=== PATIENT | female | born 1950 | race Caucasian/White ===

== ENCOUNTER 2024-11-15 14:43 | Emergency (ER) | payer MEDICARE, MEDICAID, SELFPAY ==
[2024-11-15 14:44] VITALS: PULSE 88; RESP 18; O2SAT 96; BMI 40.7
[2024-11-15 14:59] VITALS: BP 130/82; PULSE 80; RESP 18; TEMP 36.6; O2SAT 98
--- NOTE | 2024-11-15 15:12 | PD.EDRME ---
Rapid Medical Screening Exam E Arrival date/time: 11/15/24 14:43 74-year-old female presents to the emergency department complaints of diarrhea for 7 days. Patient does report she had 1 bout of black stools today prompting her ED visit. I have greeted and performed a focused initial assessment of this patient. Initial appropriate labs ordered at this time. A comprehensive ED assessment and evaluation of the patient and analysis of all test and completion of medical decision making process will be conducted by additional ED provider. Chief Complaint: Nausea/Vomiting/Diarrhea Time Seen by Provider: 11/15/24 14:56 Vital signs: Vital Signs Temperature 97.9 F 11/15/24 14:59 Pulse Rate 80 11/15/24 14:59 Respiratory Rate 18 11/15/24 14:59 Blood Pressure 130/82 11/15/24 14:59 Pulse Oximetry (%) 98 11/15/24 14:59 Oxygen Delivery Method Room Air 11/15/24 14:59
[2024-11-15] MEDS: LOPERAMIDE 2 MG CAPSULE 4 MG PO (15:37)
[2024-11-15 16:16] LABS: Basophils % (Auto) 1 % (0-2.5); Eosinophils # (Auto) 0.2 Thou/mm3 (0.0-0.5); Eosinophils % (Auto) 4 % (0-10); Hematocrit 36.2 % (36.0-46.0); Hemoglobin 11.8 g/dL (12.0-16.0); Immature Granulocytes % (Auto) 0 % (0-0); Immature Granulocytes Auto 0.02 Thou/mm3 (0.00-0.00); Lymphocytes # (Auto) 1.4 Thou/mm3 (1.0-4.8); Lymphocytes % (Auto) 25 % (10-50); Mean Corpuscular HGB Conc 32.6 g/dl (31.0-37.0); Mean Corpuscular Hemoglobin 28.6 pg (25.0-35.0); Mean Corpuscular Volume 88 fL (80-100); Monocytes # (Auto) 0.5 Thou/mm3 (0.0-0.8); Monocytes % (Auto) 10 % (0-12); Neutrophils # (Auto) 3.3 Thou/mm3 (1.8-7.7); Neutrophils % (Auto) 61 % (37-80); Nucleated Red Blood Cell % 0 /100 WBC (0); Platelet Count 224 Thou/mm3 (140-440); RDW Standard Deviation 46.1 fL (36.4-46.3); Red Blood Count 4.13 Miln/mm3 (4.00-5.20); White Blood Count 5.4 Thou/mm3 (3.6-11.0)
[2024-11-15 16:33] LABS: Alanine Aminotransferase 16 U/L (10-49); Albumin, Serum 4.6 gm/dL (3.4-4.8); Albumin/Globulin Ratio 1.7 (1.2-2.2); Alkaline Phosphatase 118 U/L (46-116); Anion Gap 7 (7-16); Aspartate Amino Transferase 25 U/L (0-34); BUN/Creatinine Ratio 13 Ratio (12-20); Bilirubin,Total 0.2 mg/dL (0.3-1.2); Blood Urea Nitrogen 13 mg/dL (9-23); Calcium 9.6 mg/dL (8.3-10.6); Calcium (Corrected) 9.6 mg/dL (8.5-10.1); Carbon Dioxide 22.8 mMol/L (20.0-31.0); Chloride 99 mMol/L (98-107); Estimated Creatinine Clearance 56.1 mL/min (>60); Globulin 2.7 gm/dL (2.3-3.5); Glucose 121 mg/dL (74-106); Osmolality,Calculated 260 (275-295); Potassium 4.8 mMol/L (3.4-5.1); Sodium 129 mMol/L (136-145); Total Protein 7.3 gm/dL (5.7-8.2); eGFR 59 See Note
[2024-11-15 16:46] LABS: Prothrombin Time 10.9 Seconds (9.0-12.2)
[2024-11-15 18:57] VITALS: BP 160/99; PULSE 87; RESP 17; TEMP 36.6; O2SAT 100
[2024-11-15 19:05] VITALS: BP 180/91; PULSE 76; RESP 16; O2SAT 100
--- NOTE | 2024-11-15 19:14 | PD.EDNV ---
Nausea/Vomit./Diarrhea-RME/HPI General Chief complaint: Nausea/Vomiting/Diarrhea Stated complaint: Diarrhea Time Seen by Provider: 11/15/24 14:56 Source: patient Arrival date/time: 11/15/24 14:43 Mode of arrival: ambulatory Limitations: no limitations RME / HPI RME / HPI Narrative: 11/15/24 14:43 74-year-old female presents to the emergency department complaints of diarrhea for 7 days. Patient does report she had 1 bout of black stools today prompting her ED visit. I have greeted and performed a focused initial assessment of this patient. Initial appropriate labs ordered at this time. A comprehensive ED assessment and evaluation of the patient and analysis of all test and completion of medical decision making process will be conducted by additional ED provider. Dr. Liang?s Main ED Evaluation: The patient is a 74-year-old female who presented to the emergency department with a chief complaint of multiple episodes of diarrhea per day for the past 8 days. She describes her stools as black, loose, and tarry in appearance. Despite these symptoms, she denies any abdominal pain, including epigastric discomfort. She has chronic back pain, for which she takes ibuprofen 600 mg TID daily, but reports no new or worsening back pain. Additionally, she denies other systemic symptoms such as body aches, chills, shaking, or fevers. The patient also reports a cough but denies any associated upper respiratory symptoms such as a runny nose, sneezing, sore throat, or headache. During the medical screening exam (MSE), the patient initially stated that she had experienced a single black stool that resembled tar, which prompted her visit to the ED. However, during a subsequent conversation, she clarified that she has been having black diarrhea for 8 days. She denies symptoms of dizziness, lightheadedness, blurry vision, or orthostatic changes. There is also no dyspnea on exertion. The patient reports no personal history of gastrointestinal bleeding and is not taking any anticoagulant medications. Related Data Previous Rx's ?Medication ?Instructions ?Recorded cyclobenzaprine 10 mg tablet 10 mg PO TID #14 tabs 04/30/23 meloxicam 7.5 mg tablet 7.5 mg PO QDAY #14 tabs 04/30/23 loperamide 2 mg-simethicone 125 mg 1 tab PO Q3H PRN loose stool #30 11/15/24 tablet (Anti-Diarrheal tabs (loperamide) - Anti-Gas) Allergies Allergy/AdvReac Type Severity Reaction Status Date / Time No Known Allergies Allergy Verified 11/15/24 14:47 Review of Systems Review of Systems Systems Reviewed: All systems reviewed, normal except as documented Past Medical History Past Medical History CARDIAC: Negative Congestive Heart Failure RESPIRATORY: Negative Chronic Obstructive Pulmonary Disease (COPD) GENITOURINARY: Negative Renal Disease MUSCULOSKELETAL: Positive Musculoskeletal Disorders and Arthritis ENDOCRINE: Negative Diabetes Mellitus Type 1 or Diabetes Mellitus Type 2 Social History SMOKING STATUS: Light (< 1 pack/day) ED Exam Narrative Physical exam: GENERAL APPEARANCE: alert and oriented x 4, well-developed, well-nourished, no acute distress VITALS: All vitals were reviewed and the pulse ox is 100% on room air, which is normal according to my interpretation. HEENT: Normocephalic, atraumatic; pupils equal, round, reactive to light; EOMI; mucous membranes pink, moist; oropharynx clear NECK: Supple LUNGS: CTABL; no wheezes, no rales, no rhonchi HEART: Regular rate, regular rhythm; normal S1, S2; no murmurs ABDOMEN: non distended; normal BS; soft, no tenderness, no guarding, no rebound; no masses, no organomegaly, no hernia. No right lower quadrant or right upper quadrant tenderness to even deep palpation. RECTAL: Patient is guaiac negative from below. BACK: no CVA tenderness EXTREMITIES: atraumatic; no edema NEUROLOGIC: awake; alert and oriented x4; cranial nerves II-XII grossly intact; no focal sensory or motor deficits PSYCHIATRIC: appropriate mood and affect SKIN: warm, dry, normal color; no rashes General Limitations: Present no limitations Course Quality Measures none Orders Category Date Time Status Occult Blood,Stool (Nursing) NOW Care 11/15/24 15:12 Completed CBC Stat Lab 11/15/24 15:39 Completed CMP [Comprehensive Metabolic Panel] Stat Lab 11/15/24 15:39 Completed PT [Prothrombin Time with INR] Stat Lab 11/15/24 15:39 Completed Loperamide [Imodium] Med 11/15/24 15:11 Discontinued 4 mg PO X1 ONE Vital Signs Vital signs: Vital Signs Temperature 97.9 F 11/15/24 14:59 Pulse Rate 80 11/15/24 14:59 Respiratory Rate 18 11/15/24 14:59 Blood Pressure 130/82 11/15/24 14:59 Pulse Oximetry (%) 98 11/15/24 14:59 Oxygen Delivery Method Room Air 11/15/24 14:59 Nausea/Vomiting/Diarrhea MDM Narrative MDM Narrative:: Patient is a 74-year-old female who presented to the emergency department complaining of multiple episodes of diarrhea per day for the last 8 days. Patient denies abdominal pain, has chronic back pain but no new back pain, no bodyaches, no chills or shakes or fevers. She complains of a cough but no runny nose or sneezing. No sore throat or headache. Patient describes the stool as black. Apparently she takes ibuprofen 600 mg 3 times daily for chronic back pain. She denies epigastric or otherwise abdominal pain [place] [facility] [place] mentioned that she had 1 black stool which appeared like tar and that prompted her to come to the emergency department. However when I spoke with her she said she has been having black diarrhea for 8 days. No lightheadedness, dizziness, blurry vision. No dyspnea on exertion. No orthostatic symptoms. No history of GI bleed. She is not on anticoagulants Patient is guaiac negative from below. The remainder of her exam is completely normal including the abdominal exam. No right lower quadrant or right upper quadrant tenderness to even deep palpation. Patient received 1 Imodium here in the emergency department and her diarrhea is resolved. Will discharge the patient with a prescription for same and instructions to follow-up with her primary care doctor. Scribe Attestation: Karli Santiago, am scribing for and in the presence of Dr. Liang. Provider Notation: Although this document has been carefully reviewed, there may still be some phonetic and other typographical errors. These errors are purely grammatical due to imperfections in the software program and should not be construed in any way to compromise the substance of the patient's medical care during this visit. Patient data External records reviewed:: [facility] previous records Clinical information provided by:: patient Social determinants that could affect healthcare access:: none Patient has the following chronic illnesses:: see PMH How is presenting disease/condition affected by chronic disease/condition?: uneffected by Evaluation data The following diagnostics were reviewed and interpreted by me:: lab results Lab and/or radiology exams considered but not ordered:: n/a Interpretation Summary: WBC 5.4 WNL Medications / Prescriptions Medications / Prescriptions considered but not ordered:: n/a Medication administrations:: Medication Administration History Discontinued Medications Loperamide HCl (Loperamide 2 Mg Capsule) 4 mg PO X1 ONE Stop: 11/15/24 15:12 Last Admin: 11/15/24 15:37 Dose: 4 mg Documented By: as above Consultations Consultation(s) initiated? (list below): No Diagnosis Nausea Differential Diagnosis: traveler's diarrhea, gastroenteritis, drug-induced nausea and vomiting and dehydration Most likely diagnosis given after review of the tests above:: Diarrhea Admission Indicated Admission indicated?: not indicated Admission Request Was there a request for admission?: No Disposition Plan Disposition Plan: Discharge Discharge Attestation Discharge Attestation: The patient and all family members were given an opportunity to ask questions and understood the discharge instructions. Discharge instructions specifically effects, indications for sooner follow up or return to the emergency department, and the expected course of current diagnosis. Patient condition: Stable Discharge Plan Plan Patient Disposition: HOME (Self Care) Disposition Comment: Stable for discharge Patient condition on transfer: Stable Prescriptions/Referrals Prescriptions/Med Rec: New loperamide-simethicone [Anti-Diarrheal (kendell)-Anti-Gas] 2-125 mg tablet 1 tab PO Q3H PRN (Reason: loose stool) Qty: 30 0RF Rx Instructions: do not exceed 4 tabs in 24 hrs No Action cyclobenzaprine 10 mg tablet 10 mg PO TID Qty: 14 0RF meloxicam 7.5 mg tablet 7.5 mg PO QDAY Qty: 14 0RF Referrals: [facility] [Outside] - In 1 week Problem List Clinical Impression: Diarrhea Patient/Caregiver Discharge Instructions Discharge Activity: activity as tolerated Education Materials: Treating Diarrhea, Self-Care for Vomiting and Diarrhea, ED Diarrhea, Unknown Cause, ED Vomiting and Diarrhea ... Additional Instructions: Please return to the emergency department for any worsening or any further medical problems. Otherwise he should follow-up with your primary care doctor or in the family [facility] within the next several days. I do not believe that your pooping blood. Sometimes when people have black stool we worry about it being blood. But are special test today showed that this is not blood. Print Language: Montserratian Stand Alone Forms: Brandi Award Info., Patient Portal Info Letter
== END 2024-11-15 19:37 | disposition home or self-care (01) ==
PROVIDERS: Nurse Practitioner Primary Care; Emergency Provider Emergency Medicine
DX: R19.7 Diarrhea, unspecified (principal); F17.210 Nicotine dependence, cigarettes, uncomplicated
CPT/HCPCS: 36415; 80053; 85025; 85610; 87015; 87045; 87046; 87205; 87899; 99283; A9270

== ENCOUNTER 2025-01-12 08:55 | Emergency (ER) | payer MEDICARE, MEDICAID, SELFPAY ==
[2025-01-12 09:02] VITALS: BP 122/67; PULSE 89; RESP 18; TEMP 36.7; O2SAT 97; BMI 42.5
[2025-01-12 09:03] VITALS: PULSE 92; RESP 18; O2SAT 98; BMI 40.7
--- NOTE | 2025-01-12 09:30 | EDNOTE_ITS ---
<Statement entered by Binta Campbell MD - 01/12/25 17:53> As co-signing physician, I was present and available for consult prn. I concur with the plan and care as documented by the midlevel provider. ED General RME/HPI General Chief complaint: General Adult/Misc Complain Stated complaint: ARTHRITIS Time Seen by Provider: 01/12/25 09:35 Source: patient Arrival date/time: 01/12/25 08:55 74-year-old female with a history of arthritis presents to the emergency room with a chief complaint of generalized bodyaches and pain. Patient states she has seen her primary care provider for increased pain but they did not want to give her stronger medication. Mode of arrival: ambulatory Limitations: no limitations Related Data Previous Rx's ?Medication ?Instructions ?Recorded cyclobenzaprine 10 mg tablet 10 mg PO TID #14 tabs meloxicam 7.5 mg tablet 7.5 mg PO QDAY #14 tabs 04/08 01/28 loperamide 2 mg-simethicone 125 mg 1 tab PO Q3H PRN lo ose stool #30 11/15/24 tablet (Anti-Diarrheal tabs (loperamide) - Anti-Gas) Allergies Allergy/AdvReac Type Severity Reaction Status Date / Time No Known Allergies Allergy Verified 11/15/24 14:47 Review of Systems Review of Systems Systems Reviewed: All systems reviewed, normal except as documented Constitutional Constitutional: Reports system reviewed and no additional complaints, except as documented, Denies fatigue, Denies fever(s), Denies headache(s) and Denies weakness Eyes Eyes: Reports system reviewed and no additional complaints, except as documented, Denies blurry vision and Denies change in vision ENT Ears, Nose, Mouth, and Throat: Reports system reviewed and no additional complaints, except as documented, Denies otalgia, Denies headache(s), Denies nasal congestion, Denies throat swelling and Denies vertigo Cardiovascular Cardiovascular: Reports system reviewed and no additional complaints, except as documented, Denies chest pain, Denies dyspnea and Denies dyspnea on exertion Respiratory Respiratory: Reports system reviewed and no additional complaints, except as documented, Denies chest congestion, Denies cough, Denies dyspnea, Denies dyspnea on exertion and Denies wheezing Gastrointestinal Gastrointestinal: Reports system reviewed and no additional complaints, except as documented, Denies abdominal pain, Denies cramping, Denies nausea and Denies vomiting Genitourinary Genitourinary: Reports system reviewed and no additional complaints, except as documented Musculoskeletal Musculoskeletal: Reports system reviewed and no additional complaints, except as documented, Reports arthralgias, Denies back pain, Reports muscle weakness and Reports myalgias Integumentary/Breasts Skin/Breast: Reports system reviewed and no additional complaints, except as documented and Denies wounds Neurologic Neurologic: Reports system reviewed and no additional complaints, except as documented, Denies confusion, Denies headache(s), Denies lack of coordination, Denies vertigo and Denies weakness Psychiatric Psychiatric: Reports system reviewed and no additional complaints, except as documented, Denies anxiety, Denies confusion, Denies depression, Denies paranoia, Denies suicidal ideation and Denies tactile hallucinations Endocrine Endocrine: Reports system reviewed and no additional complaints, except as documented and Denies fatigue Hematologic/Lymphatic Hematologic/Lymphatic: Reports system reviewed and no additional complaints, except as documented and Denies lymphadenopathy Allergic/Immunologic Allergic/Immunologic: Reports system reviewed and no additional complaints, except as documented, Denies throat swelling, Denies urticaria and Denies wheezing Past Medical History Past Medical History CARDIAC: Negative Congestive Heart Failure RESPIRATORY: Negative Chronic Obstructive Pulmonary Disease (COPD) GENITOURINARY: Negative Renal Disease MUSCULOSKELETAL: Positive Musculoskeletal Disorders and Arthritis ENDOCRINE: Negative Diabetes Mellitus Type 1 or Diabetes Mellitus Type 2 Social History SMOKING STATUS: Current some day smoker ED Exam General Limitations: Present no limitations General appearance: Present alert and in no apparent distress Head Head exam: Present atraumatic Eye Eye exam: Present normal appearance, PERRL and EOMI ENT ENT exam: Present normal exam, normal oropharynx and mucous membranes moist Neck Neck exam: Present normal inspection, full ROM and trachea midline Chest Chest inspection: Present normal inspection and symmetric chest wall rise Respiratory Respiratory exam: Present normal lung sounds bilaterally Cardiovascular Cardiovascular exam: Present regular rate, normal rhythm and normal heart sounds Abdominal Exam Abdominal exam: Present soft and normal bowel sounds Extremities Exam Extremities exam: Present normal inspection and full ROM Back Exam Back exam: Present normal inspection and full ROM Neurological Exam Neurological exam: Present alert, oriented X3 and CN II-XII intact Psychiatric Psychiatric exam: Present normal affect and normal mood Skin Skin exam: Present warm, dry, intact and normal color Course Quality Measures none Orders Category Date Time Status Ketorolac Inj [Toradol Inj] Med 01/12/25 09:30 Discontinued 30 mg IM X1 ONE traMADol HCL [Ultram] Med 01/12/25 09:30 Discontinued 50 mg PO X1 ONE Vital Signs Vital signs: Vital Signs Temperature 98.0 F 01/12/25 09:02 Pulse Rate 89 01/12/25 09:02 Respiratory Rate 18 01/12/25 09:02 Blood Pressure 122/67 01/12/25 09:02 Pulse Oximetry (%) 97 01/12/25 09:02 Oxygen Delivery Method Room Air 01/12/25 09:02 O2 saturation 97% within normal limits [facility] Patient data External records reviewed:: [facility] previous records Clinical information provided by:: patient Social determinants that could affect healthcare access:: none Patient has the following chronic illnesses:: No chronic illness How is presenting disease/condition affected by chronic disease/condition?: no chronic disease Evaluation data The following diagnostics were reviewed and interpreted by me:: lab results and radiology exam(s) Lab and/or radiology exams considered but not ordered:: Labs and radiology exams considered and ordered Interpretation Summary: N/A Medications Medications considered but not ordered:: Medication given Medication administrations:: Medication Administration History Discontinued Medications Ketorolac Tromethamine (Ketorolac Inj 60 Mg/2 Ml Vial) 30 mg IM X1 ONE Stop: 01/12/25 09:31 Tramadol HCl (Tramadol Hcl 50 Mg Tablet) 50 mg PO X1 ONE Stop: 01/12/25 09:31 Medication given Consultations Consultation(s) initiated? (list below): No Diagnosis Differential Diagnosis ED Complaint MDM: Myalgias/arthritis/breakthrough pain Most likely diagnosis given after review of the tests above:: Breakthrough pain Admission Indicated Admission indicated?: not indicated Explain why admission is indicated or not indicated:: N/A Admission Request Was there a request for admission?: No Disposition Plan Disposition Plan: Discharge Discharge Attestation Discharge Attestation: The patient and all family members were given an opportunity to ask questions and understood the discharge instructions. Discharge instructions specifically effects, indications for sooner follow up or return to the emergency department, and the expected course of current diagnosis. Patient condition: Stable Medical Decision Making MDM Narrative MDM Narrative: 74-year-old female with a history of arthritis presents to the emergency room with a chief complaint of generalized bodyaches and pain. Patient states she has seen her primary care provider for increased pain but they did not want to give her stronger medication. Patient is hemodynamically stable and in no apparent distress. Patient is not tachypneic not tachycardic and O2 saturation within normal limits Physical examination shows a soft nontender abdomen. There is clear bilateral lung sounds and patient states most of her pain is in her shoulder area and back. Patient denies any trauma and states she takes medication at home but her pain has gotten worse and her primary care provider does not want to prescribe her stronger medication. Pain medication was given to the patient with significant improvement to her symptoms. I educated the patient to follow-up with her primary care provider as a referral to a pain specialist might be indicated in her case Patient was educated to follow-up with her primary care provider in the next 24 to 48 hours and return to the emergency room for any evidence of worsening signs or symptom Differential Diagnosis Differential Diagnosis: Myalgias/arthritis/breakthrough pain Discharge Plan Plan Patient Disposition: HOME (Self Care) Disposition Comment: Stable Prescriptions/Referrals Prescriptions/Med Rec: No Action cyclobenzaprine 10 mg tablet 10 mg PO TID Qty: 14 0RF meloxicam 7.5 mg tablet 7.5 mg PO QDAY Qty: 14 0RF loperamide-simethicone [Anti-Diarrheal (kendell)-Anti-Gas] 2-125 mg tablet 1 tab PO Q3H PRN (Reason: loose stool) Qty: 30 0RF Rx Instructions: do not exceed 4 tabs in 24 hrs Problem List Clinical Impression: Chronic pain, Arthritis Patient/Caregiver Discharge Instructions Education Materials: What Is Arthritis?, Understanding Chronic Pain, ED Chronic Pain Additional Instructions: Please follow-up with your primary care provider in the next 24 to 48 hours. Medication was given to you during your stay with improvement in your symptoms For any evidence of worsening signs or symptoms return to the emergency room i mmediately Print Language: Malian Stand Alone Forms: Brandi Award Info., Patient Portal Info Letter PA/PLASTIC ROLLER Supervising Physician PA/DESTINY Supervising Physician: Dr. CAMPBELL
[2025-01-12] MEDS: traMADol HCL 50 MG TABLET PO (10:24)
[2025-01-12] MEDS: KETOROLAC INJ 60 MG/2 ML VIAL 30 MG IM (10:25)
== END 2025-01-12 10:27 | disposition home or self-care (01) ==
LOC: SERX 09:44
PROVIDERS: Emergency Provider Emergency Medicine
DX: G89.29 Other chronic pain (principal); M19.90 Unspecified osteoarthritis, unspecified site
CPT/HCPCS: 96372; 99283; J1885; A9270